=== PATIENT | male | born 1980 | race Caucasian/White ===

== ENCOUNTER 2021-06-28 08:27 | Emergency (ER) | payer OTHER ==
[~2021-06-28] VITALS: Ht 170.2 cm; Wt 86.2 kg
[2021-06-28] MEDS ORDERED: FLEXERIL PO (10:13)
[2021-06-28] MEDS ORDERED: PERCOCET 5-3251 EACH PO (10:13)
[2021-06-28 10:27] VITALS: BP 134/72
== END 2021-06-28 10:28 | disposition home or self-care (01) ==
LOC: M.ERS 08:27
DX: M48.52XA Collapsed vertebra, not elsewhere classified, cervical region, initial encounter for fracture (principal); M54.2 Cervicalgia; Z88.1 Allergy status to other antibiotic agents; Z88.6 Allergy status to analgesic agent